=== PATIENT | male | born 1940 | race Caucasian/White ===

== ENCOUNTER 2017-12-11 11:02 | Emergency (ER) | payer SELFPAY ==
[~2017-12-11] VITALS: Ht 185.4 cm; Wt 104.0 kg
[~2017-12-11 11:02] MED LIST: ALFUZOSIN PO; ASPI81CH PO; Acidophilus La100 GM; CARV25 PO; CILO100 PO; CLOP75 PO; COREG; DOCU100 PO; FERR325 PO; FURO20 PO; FURO40 PO; GABA100 PO; HYDACE5 PO; INSN100I SC; INSULANPEN SC; LANTUS; LASIX; LOSA50 PO; METF500 PO; METO25ER PO; NEURONTIN; NOVOLOG; OMEP40CA12 PO; PENT400ER PO; PRILOSEC; SIMV80 PO; VERA240ERA PO; VICODIN HP 10-1 EACH PO
[2017-12-11 11:46] LABS: BASOPHILS ABSOLUTE AUTO 0.05 K/mm3 (0.00-0.23); BASOPHILS PERCENT AUTO 1 % (0-2); EOSINOPHILS ABSOLUTE AUTO 0.24 K/mm3 (0.00-0.68); EOSINOPHILS PERCENT AUTO 3 % (0-6); Hematocrit 35.6 % (37.0-53.0); Hemoglobin 11.9 g/dL (13.5-17.5); IMMATURE GRAN ABSOLUTE AUTO 0.02 K/mm3 (0.00-0.10); IMMATURE GRAN PERCENT AUTO 0 % (0-1); LYMPHOCYTES ABSOLUTE AUTO 1.59 K/mm3 (0.84-5.20); LYMPHOCYTES PERCENT AUTO 20 % (21-46); MONOCYTES ABSOLUTE AUTO 0.66 K/mm3 (0.16-1.47); MONOCYTES PERCENT AUTO 8 % (4-13); Mean Corpuscular HGB 31.2 pg (26.0-34.0); Mean Corpuscular HGB Conc 33.4 g/dL (31.5-36.5); Mean Corpuscular Volume 93 fL (80-100); Mean Platelet Volume 10.3 fL (9.1-12.4); NEUTROPHILS ABSOLUTE AUTO 5.48 K/mm3 (1.96-9.15); NEUTROPHILS PERCENT AUTO 68 % (41-73); Platelet Count 222 K/mm3 (150-400); RDW Coefficient Variation 11.8 % (11.7-14.2); RDW Standard Deviation 39.9 fL (35.1-46.3); Red Blood Cell Count 3.82 M/mm3 (4.30-5.90); White Blood Cell Count 8.04 K/mm3 (4.00-11.30)
[2017-12-11 12:01] LABS: Alanine Aminotransfer (ALT/SGP 29 U/L (12-78); Albumin, Blood 3.1 g/dL (3.4-5.0); Albumin/Globulin Ratio 0.9 (0.8-1.8); Alk Phos 108 U/L (50-136); Anion Gap 9 mmol/L (6-16); Aspartate Aminotrans (AST/SGOT 26 U/L (12-37); Bilirubin, Total 0.4 mg/dL (0.1-1.0); Blood Urea Nitrogen 29 mg/dL (8-24); Bun/Creatinine Ratio 26.6 (12.0-20.0); CO2, Blood 26 mmol/L (21-32); Calcium, Blood 8.2 mg/dL (8.5-10.1); Chloride, Blood 101 mmol/L (98-108); Creatinine, Blood 1.09 mg/dL (0.60-1.20); Globulin, Blood 3.6 g/dL (2.2-4.0); Glomerular Filtration Rate >60 (60-); Glucose, Blood 335 mg/dL (70-99); Potassium, Blood 4.3 mmol/L (3.5-5.5); Sodium, Blood 136 mmol/L (136-145); Total Protein, Blood 6.7 g/dL (6.4-8.2); Troponin I <0.015 ng/mL (0.000-0.040)
[2017-12-11] MEDS ORDERED: SIMV80 PO (13:14)
[2017-12-11] MEDS ORDERED: Glucagon Emergen1 MG (13:15)
[2017-12-11 13:27] LABS: Source, Urine Clean Catch
[2017-12-11 14:16] LABS: Bilirubin, Urine Neg (Neg); Blood, Urine Neg (Neg); Glucose Qualitative, Urine 3+ (Neg); Ketones, Urine Neg (Neg); Leukocyte Esterase, Urine Neg (Neg); Nitrite, Urine Neg (Neg); Protein, Urine Neg (Neg); Urobilinogen, Urine NORM (Normal)
[2017-12-11 14:27] LABS: Appearance, Urine Clear (Clear); Color, Urine Yellow (P-Yellow)
== END 2017-12-11 15:53 | disposition home or self-care (01) ==
LOC: ER 11:02
PROVIDERS: Emergency Medicine
DX: R07.9 Chest pain, unspecified (principal); E11.40 Type 2 diabetes mellitus with diabetic neuropathy, unspecified; J44.9 Chronic obstructive pulmonary disease, unspecified; I10 Essential (primary) hypertension; Z88.2 Allergy status to sulfonamides; Z91.040 Latex allergy status; Z88.8 Allergy status to other drugs, medicaments and biological substances; Z79.899 Other long term (current) drug therapy; Z79.82 Long term (current) use of aspirin; Z79.4 Long term (current) use of insulin
CPT/HCPCS: 36415; 71046; 80053; 81003; 83880; 84484; 85025; 93005; 93010; 99284

== ENCOUNTER 2020-02-23 13:11 | Inpatient (IN) | payer OTHER, MEDICARE ==
[~2020-02-23] VITALS: Ht 190.5 cm; Wt 96.0 kg
[~2020-02-23 13:11] MED LIST changes: +ALFU10 PO; -ALFUZOSIN PO; +ASCO500 PO; -ASPI81CH PO; +Aspirin EC81 MG PO; +BASAGLAR K100 UNIT/1 SC; +CIPR500 PO; +CLEOCIN PO; +CLIN150 PO; +Culturelle1 CAP PO; +DOXY100 PO; +Flonase 0.05% N16 GM; +Glucagon Emergen1 MG; -INSN100I SC; -INSULANPEN SC; +K-Dur20 MEQ PO; +LEVO750 PO; +NOVOLOG FL100 UNIT/1 SC; +ONDA4ODT SL; +STIOLTO RESPIMAT4 G1 INH; +THERA1 EACH PO
[2020-02-23 13:53] LABS: BASOPHILS ABSOLUTE AUTO 0.06 K/mm3 (0.00-0.23); BASOPHILS PERCENT AUTO 0 % (0-2); EOSINOPHILS PERCENT AUTO 1 % (0-6); Hematocrit 38.4 % (37.0-53.0); IMMATURE GRAN PERCENT AUTO 1 % (0-1); LYMPHOCYTES ABSOLUTE AUTO 0.87 K/mm3 (0.84-5.20); LYMPHOCYTES PERCENT AUTO 5 % (21-46); MONOCYTES ABSOLUTE AUTO 1.37 K/mm3 (0.16-1.47); MONOCYTES PERCENT AUTO 8 % (4-13); Mean Corpuscular HGB 31.3 pg (26.0-34.0); Mean Corpuscular HGB Conc 33.9 g/dL (31.5-36.5); Mean Corpuscular Volume 92 fL (80-100); Mean Platelet Volume 10.8 fL (9.1-12.4); NEUTROPHILS ABSOLUTE AUTO 15.07 K/mm3 (1.96-9.15); NEUTROPHILS PERCENT AUTO 86 % (41-73); Platelet Count 287 K/mm3 (150-400); RDW Coefficient Variation 12.4 % (11.7-14.2); RDW Standard Deviation 41.8 fL (35.1-46.3); Red Blood Cell Count 4.16 M/mm3 (4.30-5.90); White Blood Cell Count 17.57 K/mm3 (4.00-11.30)
[2020-02-23 14:10] LABS: Albumin, Blood 2.3 g/dL (3.4-5.0); Albumin/Globulin Ratio 0.5 (0.8-1.8); Bilirubin, Total 1.1 mg/dL (0.1-1.0); Bun/Creatinine Ratio 47.6 (12.0-20.0); Calcium, Blood 8.6 mg/dL (8.5-10.1); Creatinine, Blood 1.24 mg/dL (0.60-1.20); Globulin, Blood 4.6 g/dL (2.2-4.0); Potassium, Blood 4.5 mmol/L (3.5-5.5); Total Protein, Blood 6.9 g/dL (6.4-8.2); Troponin I 0.242 ng/mL (0.000-0.040)
[2020-02-23 14:36] LABS: Source, Urine Catheter
[2020-02-23 14:45] LABS: Bilirubin, Urine Neg (Neg); Blood, Urine Neg (Neg); Glucose Qualitative, Urine Neg (Neg); Ketones, Urine Neg (Neg); Leukocyte Esterase, Urine Neg (Neg); Nitrite, Urine Neg (Neg); Protein, Urine 2+ (Neg); Specific Gravity, Urine 1.015 (1.003-1.022); Urobilinogen, Urine 1+ (Normal)
[2020-02-23 14:51] LABS: Appearance, Urine Clear (Clear); Color, Urine Yellow (P-Yellow)
[2020-02-23 14:52] LABS: Red Blood Cells, Urine Not Seen /hpf (0-2); Squamous Epithelial Cells Rare /hpf (Few); White Blood Cells, Urine Not Seen /hpf (0-5)
[2020-02-23 14:53] LABS: Bacteria Not Seen /hpf; Hyaline Casts 0-2 /lpf (0-2)
[2020-02-23] MEDS ORDERED: ZYRTEC10 M2 PO (18:43)
[2020-02-23] MEDS ORDERED: ACIDOPHILUS1 EAC3 PO (18:45)
[2020-02-23] MEDS ORDERED: PROAIR DIGIHAL90 MCG INH (18:47)
[2020-02-23] MEDS ORDERED: HYDACE10B PO (18:48)
--- NOTE | 2020-02-23 18:57 | NUR ---
REPORT RECEIEVED FROM VICENTE MACKEY RN, AT 1757. PATIENT ARRIVED TO ROOM 342. WOUND TO L FOOT CLEANSED PICS TAKEN AND PLACED IN PATIENT CHART. DRESSED WOUND. FOUL ODOR. IV ABX RUNNING. PATIENT EATING DINNER MEAL. VERY SUN'AQ. MED REC COMPLETED. REMAINDER OF ADMIT WILL NEED TO BE COMPLETED BY ONCOMING RN.
[2020-02-24 05:10] LABS: BASOPHILS ABSOLUTE AUTO 0.07 K/mm3 (0.00-0.23); BASOPHILS PERCENT AUTO 1 % (0-2); EOSINOPHILS ABSOLUTE AUTO 0.06 K/mm3 (0.00-0.68); EOSINOPHILS PERCENT AUTO 0 % (0-6); Hematocrit 37.6 % (37.0-53.0); Hemoglobin 12.9 g/dL (13.5-17.5); IMMATURE GRAN ABSOLUTE AUTO 0.08 K/mm3 (0.00-0.10); IMMATURE GRAN PERCENT AUTO 1 % (0-1); LYMPHOCYTES ABSOLUTE AUTO 0.91 K/mm3 (0.84-5.20); LYMPHOCYTES PERCENT AUTO 6 % (21-46); MONOCYTES ABSOLUTE AUTO 1.32 K/mm3 (0.16-1.47); MONOCYTES PERCENT AUTO 9 % (4-13); Mean Corpuscular HGB 31.5 pg (26.0-34.0); Mean Corpuscular HGB Conc 34.3 g/dL (31.5-36.5); Mean Corpuscular Volume 92 fL (80-100); NEUTROPHILS ABSOLUTE AUTO 12.72 K/mm3 (1.96-9.15); NEUTROPHILS PERCENT AUTO 84 % (41-73); NRBC ABSOLUTE 0.02 K/mm3 (0.00-0.02); NRBC Auto 0.1 /100 WBC (0.0-0.2); Platelet Count 304 K/mm3 (150-400); RDW Coefficient Variation 12.6 % (11.7-14.2); RDW Standard Deviation 42.3 fL (35.1-46.3); Red Blood Cell Count 4.09 M/mm3 (4.30-5.90); White Blood Cell Count 15.16 K/mm3 (4.00-11.30)
[2020-02-24 05:46] LABS: Bun/Creatinine Ratio 39.4 (12.0-20.0); Calcium, Blood 8.4 mg/dL (8.5-10.1); Creatinine, Blood 1.32 mg/dL (0.60-1.20); Potassium, Blood 3.9 mmol/L (3.5-5.5)
[2020-02-24 05:58] LABS: C-Reactive Protein, High Sens. 96.2 mg/L (0.000-3.000)
--- NOTE | 2020-02-24 06:18 | NUR ---
SUMMARY PT HAS BEEN AOX 4. PT DENIES PAIN OR DISCOMFORT. PT CBG'S HAVE BEEN >300 THIS SHIFT. PT CALLED EARLY THIS AM AND WANTED PT CBG TO BE CHECKED DUE TO PT HAVING FREQUENT ISSUES WITH HYPOGLYCEMIA AT NIGHT. PT CBG WAS >300. PT HAS BEEN SLEEPING WELL W/ NO COMPLAINTS. CALL LIOGHT IN REACH.
--- NOTE | 2020-02-24 17:33 | NUR ---
PATIENTS BLOOD SUGAR THIS EVENING WAS 431. I CALLED DR SHAH AT APPROX 1715 AND INFORMED HIM OF PATIENTS SUGARS FOR TODAY AND RELAYED MESSAGED OF PATIENTS HOME SCHEDULE OF INSULIN, PER PATIENT, WHICH IS 30 UNITS LANTUS QHS AND 20 UNITS HUMALOG QAC FIRST DOSE OF EACH TO BE GIVEN NOW. PATIENT HAS BEEN PLEASANT AND COOPERATIVE WITH STAFF. COMPLAINED OF PAIN ONLY ONCE TO HIS LEFT PLANTAR FOOT WITH EFFECTIVE RELIEF FROM PRN TYLENOL. PATIENT CONTINUES ON IV ABX WITHOUT S/SX OF ADVERSE REACTIONS NOTED OR REPORTED. VITALS HAVE BEEN STABLE. DRESSING TO L FOOT CDI. PATIENT CONTINUES TO REST IN BED. WILL CONTINUE TO MONITOR AND PROVIDE CARE NEEDED.
--- NOTE | 2020-02-25 04:04 | NUR ---
SUMMARY PT HAD NO ISSUES NOTED. PT HAS BEEN SLEEPING WELL T/O SHIFT. PT WENT TO CT AT START OF SHIFT. PT CURRENTLY SLEEPING AND BREATHING EASY. CALL LIGHT IN REACH.
[2020-02-25 06:04] LABS: BASOPHILS ABSOLUTE AUTO 0.09 K/mm3 (0.00-0.23); BASOPHILS PERCENT AUTO 1 % (0-2); EOSINOPHILS ABSOLUTE AUTO 0.19 K/mm3 (0.00-0.68); EOSINOPHILS PERCENT AUTO 1 % (0-6); Hematocrit 39.2 % (37.0-53.0); Hemoglobin 13.3 g/dL (13.5-17.5); IMMATURE GRAN PERCENT AUTO 1 % (0-1); LYMPHOCYTES ABSOLUTE AUTO 1.13 K/mm3 (0.84-5.20); LYMPHOCYTES PERCENT AUTO 6 % (21-46); MONOCYTES ABSOLUTE AUTO 1.53 K/mm3 (0.16-1.47); MONOCYTES PERCENT AUTO 9 % (4-13); Mean Corpuscular HGB 31.5 pg (26.0-34.0); Mean Corpuscular HGB Conc 33.9 g/dL (31.5-36.5); Mean Corpuscular Volume 93 fL (80-100); Mean Platelet Volume 10.8 fL (9.1-12.4); NEUTROPHILS ABSOLUTE AUTO 15.03 K/mm3 (1.96-9.15); NEUTROPHILS PERCENT AUTO 83 % (41-73); NRBC ABSOLUTE 0.02 K/mm3 (0.00-0.02); NRBC Auto 0.1 /100 WBC (0.0-0.2); Platelet Count 302 K/mm3 (150-400); RDW Coefficient Variation 12.8 % (11.7-14.2); RDW Standard Deviation 43.6 fL (35.1-46.3); Red Blood Cell Count 4.22 M/mm3 (4.30-5.90); White Blood Cell Count 18.07 K/mm3 (4.00-11.30)
[2020-02-25 06:18] LABS: Anion Gap 7 mmol/L (6-16); Blood Urea Nitrogen 44 mg/dL (8-24); Bun/Creatinine Ratio 42.7 (12.0-20.0); CO2, Blood 28 mmol/L (21-32); Calcium, Blood 8.4 mg/dL (8.5-10.1); Chloride, Blood 99 mmol/L (98-108); Creatinine, Blood 1.03 mg/dL (0.60-1.20); Glomerular Filtration Rate >60 (60-); Glucose, Blood 151 mg/dL (70-99); Potassium, Blood 3.6 mmol/L (3.5-5.5); Sodium, Blood 134 mmol/L (136-145)
--- NOTE | 2020-02-25 17:15 | NUR ---
SHIFT SUMMARY- PT IS A/O, PLESANT AND COOPERATIVE. HIS WAS WAS AT BEDSIDE MOST OF THIS SHIFT. WAS SEEN BY ORTHO TODAY DISCUSSED BKA VS AKA. PT HAD A DOPLER PREFORMED TO DETERMINE BLOOD FLOW TO THE EXTREMITY TO DETERMINE WHICH AMPUTATION WOULD BE APPROPRIATE. PT SLEPT INTERMITENTLY THROUGHOUT THIS SHIFT. BANDAGE CHANGED. HE IS EATING AND DRINKING WELL. HE WILL BE NPO AFTER MIDNIGHT. AND POSSIBLE AMPUTATION TOMORROW.
--- NOTE | 2020-02-26 04:11 | NUR ---
SHIFT SUMMARY PT HAS HAD NO ACUTE CHANGES THIS SHIFT, NO C/O ANY KIND, A&O, PLEASANT & COOPERATIVE W/CARE, NPO SINCE MIDNIGHT, SLEP T/O THE NIGHT W/ @ BEDSIDE, SLEEPING AT THIS TIME, CALL LIGHT IN REACH, WILL CONT TO MONITOR UNTIL REPORT GIVEN TO DAY RN.
--- NOTE | 2020-02-26 16:23 | NUR ---
SHIFT SUMMARY- PT A/O PLESANT AND COOPERATIVE. HE IS RECIEVING IV ABX. HIS WAS AT BEDSIDE MOST OF THIS SHIFT. HE HAS BEEN NPO THROUGHOUT THIS SHIFT FOR PENDING PROCEDURE. HE RECIEVED A SHOWER. 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 BANDAGE IS CDI.
--- NOTE | 2020-02-26 16:24 | NUR ---
"DAY SURGERY RN | HANDOFF TO RODERICK SYKES REPORT GIVEN. WAYLON ZIEGLER RN HERE TO TALK WITH PATIENT."
--- NOTE | 2020-02-26 17:21 | NUR ---
02/26/20 1721 Erna Flores PT ON SCHEDULED ANTIBIOTICS
--- NOTE | 2020-02-26 19:15 | NUR ---
BEDSIDE REPORT WITH ANN RN. PT ARRIVES TO ICU RM 3 FROM PACU. PT UNDERWENT LEFT BKA. PT PALE, DIAPHORETIC AND CONFUSED. PT MOVING AROUND QUITE A BIT IN BED, PULLING AT MONITOR ITEMS AND TUBING FOR IV. PT HAS 18G TO RIGHT AC WITH LR AND ABX INFUSING FROM OR. PT HAS BULKY DRESSING AND STUMP SOCK TO LEFT LEG, C/D/I. PT ANSWERS TO NAME BUT IS UNABLE TO FOLLOW DIRECTIONS OR OFFER MUCH DETAIL, PT NOT COOPERATIVE WITH CARE. BP STABLE. SATS >95% ON 4L (TITRATED TO 3L). HR 60S AND PACED. PT LUNG SOUNDS CLEAR. PULSES PRESENT, STRONG TO RADIAL SITES, THREADY TO RIGHT FOOT. SEE FULL ASSESSMENT.
[2020-02-27 03:44] LABS: BASOPHILS ABSOLUTE AUTO 0.06 K/mm3 (0.00-0.23); BASOPHILS PERCENT AUTO 0 % (0-2); EOSINOPHILS ABSOLUTE AUTO 0.01 K/mm3 (0.00-0.68); EOSINOPHILS PERCENT AUTO 0 % (0-6); Hematocrit 39.1 % (37.0-53.0); Hemoglobin 12.4 g/dL (13.5-17.5); IMMATURE GRAN ABSOLUTE AUTO 0.24 K/mm3 (0.00-0.10); IMMATURE GRAN PERCENT AUTO 1 % (0-1); LYMPHOCYTES ABSOLUTE AUTO 0.73 K/mm3 (0.84-5.20); LYMPHOCYTES PERCENT AUTO 4 % (21-46); MONOCYTES ABSOLUTE AUTO 0.35 K/mm3 (0.16-1.47); MONOCYTES PERCENT AUTO 2 % (4-13); Mean Corpuscular HGB 31.2 pg (26.0-34.0); Mean Corpuscular HGB Conc 31.7 g/dL (31.5-36.5); Mean Platelet Volume 10.4 fL (9.1-12.4); NEUTROPHILS ABSOLUTE AUTO 17.21 K/mm3 (1.96-9.15); NEUTROPHILS PERCENT AUTO 93 % (41-73); Platelet Count 309 K/mm3 (150-400); RDW Coefficient Variation 13.3 % (11.7-14.2); RDW Standard Deviation 47.8 fL (35.1-46.3); Red Blood Cell Count 3.98 M/mm3 (4.30-5.90)
[2020-02-27 03:53] LABS: Mean Corpuscular Volume 98 fL (80-100)
[2020-02-27 04:02] LABS: Anion Gap 6 mmol/L (6-16); Blood Urea Nitrogen 37 mg/dL (8-24); Bun/Creatinine Ratio 30.3 (12.0-20.0); CO2, Blood 28 mmol/L (21-32); Chloride, Blood 104 mmol/L (98-108); Creatinine, Blood 1.22 mg/dL (0.60-1.20); Glomerular Filtration Rate >60 (60-); Glucose, Blood 217 mg/dL (70-99); Magnesium, Blood 2.1 mg/dL (1.6-2.4); Potassium, Blood 5.1 mmol/L (3.5-5.5); Sodium, Blood 138 mmol/L (136-145)
--- NOTE | 2020-02-27 06:32 | NUR ---
SHIFT SUMMARY PT HAD GREAT EVENING. PT ALERT AND ORIENTED. PT SATS >90% ON 2-3L O2 PER NC. PT HAS 18G TO RIGHT AC WITH NS INFUSING AT 10ML/HR. PT HAS 20G TO RIGHT SHOULDER/CHEST AREA WITH NS c 20MeQ KCL INFUSING AT 80ML/HR. PT BP STABLE, FILM REPRODUCER SHOWS A PACED RYTHYM, PT DENIES CP. DRESSING TO LEFT LEG C/D/I. LIMB INTERMITTENTLY ELEVATED. BED ALARM IN USE, CALL LIGHT IN REACH. LUNG SOUNDS CLEAR. ABD SOFT AND NON-TENDER. BS PRESENT. WILL REPORT TO ONCOMING SHIFT.
--- NOTE | 2020-02-27 08:37 | NUR ---
Received report from Jose SYKES. Patient laying on left and flat in bed. He called for pain medication and gave one Spivey 5/325 for 01/27 LBKA. He is laert and cooperative and is able to communicate needs well. LBKA site C/D/I. He is on 2 L O2 via NC and sats 97%. He has IV right chest right of nipple line and dressing intact and site WNL's and infusing NS TKO. He also has 18ga RAC IV dressing intact and site WNL's and is infusing NS with 20K of potassium at 80 ml/hr. at bedside. He tolerated breakfast and am meds well.
--- NOTE | 2020-02-27 10:26 | NUR ---
Patient states that left leg hurting again and will medicate per MAR. Used urinal; appropriately and had 600 dark cristiana urine. Transfered to surgical status and awaiting room. VSS. He is on RA and sats >95%.
--- NOTE | 2020-02-27 11:43 | NUR ---
Medicated per MAR for pain and CBG 286 no coverage excet 20 units Humalog AC/HS. He rtemains on RA and sats >95%. He continues with NS with 20 meq K at 80 ml/hr. remains at bedside, Remains 100% paced, VSS see EMR. Patient has no current needs. Just set up for lunch and assisting feeding./
--- NOTE | 2020-02-27 13:30 | NUR ---
Patient was up with PT to side of bed and did well. He tolerated lunch well. VSS, See EMR. Remains on NS with 20meq K at 80 ml. No significant changes, he will be transfering to med floor soon. Gave diet Pepsi as his choice with ice.
--- NOTE | 2020-02-27 15:42 | NUR ---
Gave report to Gaviota SYKES. Patient taken to [place] [id number] via bed. Med icated for pain per MAR prior to transport. Took 5 bags of belongs and 1 dressing change for tomorrow and came with us. He was a four person transfer to bed and got situated prior to leaving.
--- NOTE | 2020-02-27 18:03 | NUR ---
SHIFT SUMMARY: ASSUMED CARE OF PATIENT UPON HIS ARRIVAL FROM ICU AT 1530. A&O X 3, PLEASANT. SURGICAL DRESSING ON LLE IS CD&I. STATES PAIN CURRENTLY WELL CONTROLLED. PATIENT WORKED WITH PT AFTER HIS ARRIVAL TO THIS UNIT. TOLERATING PO INTAKE, DENIES N/V. USING URINAL INDEPENDENTLY. PLAN IS D/C TO SNF FOR REHAB.
--- NOTE | 2020-02-28 04:29 | NUR ---
OUTBOARD MOTORBOAT OPERATOR SUMMARY ALERT AND ORIENTED. SOMEWHAT AGITATED AT TIMES. REPORTS PAIN IN LLE S/P BTK AMPUTATION. MEDICATED PER EMAR. APPEARED TO SLEEP T/O THE NIGHT. NO ACUTE DISTRESS NOTED. DENIES SOB. BED IN LOWEST POSITION WITH CALL LIGHT IN REACH. WILL CONTINUE TO MONITOR AND REPORT TO ONCOMING RN.
[2020-02-28] MEDS ORDERED: DOCUZEN 8.6-501 EACH PO (12:09)
[2020-02-28] MEDS ORDERED: BASAGLAR K100 UNIT/1 SC (12:10)
[2020-02-28] MEDS ORDERED: HUMALOG KW100 UNIT/1 SC (12:12)
--- NOTE | 2020-02-28 18:39 | NUR ---
SHIFT SUMMARY PER REPORT PT IS POST OP DAY [address] BEVERLY IN EARLY BEFORE START OF SHIFT TO CHECK ON PT AND AGAIN AT 0830 TO CHANGE DRSG TO LBKA. WOUND CLEANED, NEW ABD'S PLACED WELL STUMP SOCK. PT'S IN AT THE TIME AND ASSISTED DR BEVERLY, PER HIS REQUEST. PT MEDICATED X2 WITH PO NORCO. PAIN LEVEL TOLERABLE ALL DAY AND PT REPORTED MEDICATION EFFECTIVE. PT UP TO BSC WITH PIVOT TX USING FWW AND 2P ASSIST. ONLY SM BM REPORTED. PT HAD REFUSED BOWEL CARE D/T STOOL SOFTNERS GIVING HIIM DIARRHEA. DR SHAW NOTIFIED OF PT'S REFUSAL. D/C ORDERS PLACED FOR REHAB [facility]. ARRANGEMENTS MADE BY VIDEO GAME ANIMATOR. REPORT CALLED PRIOR TO PT LEAVING AND AGAIN TO [facility] SYKES, AFTER PT LEFT, [facility]. IN UNTIL PT LEFT. D/C PACKET AND HARD SCRIPT SENT WITH PT.
== END 2020-02-28 18:04 | DRG 616 ==
LOC: ER 13:11 → ICUE 17:48 → MEDS 17:48 → ICUE 02-26 19:36 → MEDS 02-27 15:43
PROVIDERS: Orthopaedic Surgery; Physician Assistant; ADMIT Internal Medicine
PROC: 0Y6J0Z1 Detachment at Left Lower Leg, High, Open Approach (ICD-10-PCS; principal; 2020-02-26 15:15)
DX: E11.621 Type 2 diabetes mellitus with foot ulcer (principal); A48.0 Gas gangrene; I50.42 Chronic combined systolic (congestive) and diastolic (congestive) heart failure; I13.0 Hypertensive heart and chronic kidney disease with heart failure and stage 1 through stage 4 chronic kidney disease, or unspecified chronic kidney disease; Q60.0 Renal agenesis, unilateral; L97.529 Non-pressure chronic ulcer of other part of left foot with unspecified severity; D50.9 Iron deficiency anemia, unspecified; E11.42 Type 2 diabetes mellitus with diabetic polyneuropathy; E11.65 Type 2 diabetes mellitus with hyperglycemia; G92 Toxic encephalopathy; E11.22 Type 2 diabetes mellitus with diabetic chronic kidney disease; N18.3 Chronic kidney disease, stage 3 (moderate); N17.9 Acute kidney failure, unspecified; J44.9 Chronic obstructive pulmonary disease, unspecified; I25.10 Atherosclerotic heart disease of native coronary artery without angina pectoris; B95.1 Streptococcus, group B, as the cause of diseases classified elsewhere; E86.0 Dehydration; Z95.0 Presence of cardiac pacemaker; Z95.1 Presence of aortocoronary bypass graft; N40.0 Benign prostatic hyperplasia without lower urinary tract symptoms; E78.5 Hyperlipidemia, unspecified; I25.5 Ischemic cardiomyopathy
CPT/HCPCS: 36415; 71046; 73630; 73701; 80048; 80053; 81001; 82947; 83605; 83735; 83880; 84145; 84484; 85025; 85651; 86141; 87040; 87070; 87075; 87147; 87205; 88307; 93005; 93010; 93926; 94640; 94760; 96365; 96367; 96375; 96376; 97110; 97162; 97166; 97535; 99285-25; A9270-GY; J0295; J1100; J1170; J1885; J1940; J2405; J2543; J2704; J3010; J3370; J3480; J7050; J7120; Q9967; U0002

== ENCOUNTER 2021-02-04 14:36 | Emergency (ER) | payer OTHER ==
[~2021-02-04] VITALS: Ht 185.4 cm; Wt 81.7 kg
[~2021-02-04 14:36] MED LIST changes: +ACIDOPHILUS1 EAC3 PO; +DOCUZEN 8.6-501 EACH PO; +ELIQUIS2.5 MG PO; +FERSU300 PO; +HUMALOG KW100 UNIT/1 SC; +HYDACE10B PO; +POTCIT10 PO; +PROAIR DIGIHAL90 MCG INH; +ZYRTEC10 M2 PO
[2021-02-04 15:34] LABS: BASOPHILS ABSOLUTE AUTO 0.08 K/mm3 (0.00-0.23); BASOPHILS PERCENT AUTO 1 % (0-2); EOSINOPHILS ABSOLUTE AUTO 0.11 K/mm3 (0.00-0.68); EOSINOPHILS PERCENT AUTO 1 % (0-6); Hematocrit 39.6 % (37.0-53.0); Hemoglobin 13.4 g/dL (13.5-17.5); IMMATURE GRAN ABSOLUTE AUTO 0.03 K/mm3 (0.00-0.10); IMMATURE GRAN PERCENT AUTO 0 % (0-1); LYMPHOCYTES ABSOLUTE AUTO 1.03 K/mm3 (0.84-5.20); LYMPHOCYTES PERCENT AUTO 11 % (21-46); MONOCYTES PERCENT AUTO 11 % (4-13); Mean Corpuscular HGB 31.5 pg (26.0-34.0); Mean Corpuscular HGB Conc 33.8 g/dL (31.5-36.5); Mean Corpuscular Volume 93 fL (80-100); Mean Platelet Volume 10.3 fL (9.1-12.4); NEUTROPHILS ABSOLUTE AUTO 6.96 K/mm3 (1.96-9.15); NEUTROPHILS PERCENT AUTO 76 % (41-73); Platelet Count 302 K/mm3 (150-400); RDW Coefficient Variation 13.5 % (11.7-14.2); RDW Standard Deviation 46.2 fL (35.1-46.3); Red Blood Cell Count 4.26 M/mm3 (4.30-5.90); White Blood Cell Count 9.21 K/mm3 (4.00-11.30)
[2021-02-04 15:57] LABS: Troponin I 0.117 ng/mL (0.000-0.040)
[2021-02-04 16:11] LABS: Albumin, Blood 2.8 g/dL (3.4-5.0); Albumin/Globulin Ratio 0.5 (0.8-1.8); Bilirubin, Total 0.8 mg/dL (0.1-1.0); Bun/Creatinine Ratio 43.9 (12.0-20.0); Calcium, Blood 9.6 mg/dL (8.5-10.1); Creatinine, Blood 1.64 mg/dL (0.60-1.20); Globulin, Blood 5.6 g/dL (2.2-4.0); Potassium, Blood 2.4 mmol/L (3.5-5.5); Total Protein, Blood 8.4 g/dL (6.4-8.2)
[2021-02-04] MEDS ORDERED: K-Dur20 MEQ PO (20:31)
== END 2021-02-04 21:19 | disposition home or self-care (01) ==
LOC: ER 14:36
PROVIDERS: Physician Assistant
DX: Z45.02 Encounter for adjustment and management of automatic implantable cardiac defibrillator (principal); E87.6 Hypokalemia; E11.42 Type 2 diabetes mellitus with diabetic polyneuropathy; I11.0 Hypertensive heart disease with heart failure; I50.42 Chronic combined systolic (congestive) and diastolic (congestive) heart failure; J44.9 Chronic obstructive pulmonary disease, unspecified; Z87.891 Personal history of nicotine dependence; Z79.4 Long term (current) use of insulin; Z95.1 Presence of aortocoronary bypass graft; Z95.5 Presence of coronary angioplasty implant and graft; Z88.8 Allergy status to other drugs, medicaments and biological substances; Z88.2 Allergy status to sulfonamides; Z91.040 Latex allergy status
CPT/HCPCS: 36415; 80053; 83690; 83735; 84132; 84484; 85025; 93005; 93010; 96365; 96366; 99284-25; A9270; J3480; J7050

== ENCOUNTER 2021-06-10 10:25 | Day surgery (SDC) | payer OTHER ==
[~2021-06-10] VITALS: Ht 185.4 cm; Wt 80.0 kg
[~2021-06-10 10:25] MED LIST changes: +ARTIFICIAL TEA1 EAC1; +Acerola C500 MG PO; +MULVITA PO
--- NOTE | 2021-06-10 13:25 | NUR ---
PT SELF MEDICATED WITH HOME INSULIN FOR BLOOD SUGARS AND ALSO TOOK HIM HOME MORNING MEDICATIONS. VSS.
--- NOTE | 2021-06-10 14:29 | NUR ---
1G ANCEF INFUSING ORDERED PRIOR TO DC. VSS. NO BLEEDING, OOZING OR HEMATOMA NOTED. WILL CONTINUE TO MONITOR.
--- NOTE | 2021-06-10 15:01 | NUR ---
DISCHARGE PT DRESSED SELF WITH NO COMPLICATIONS. PTS SITE WITH NO BLEEDING, OOZING OR HEMATOMA NOTED. NO ADDITIONAL SWELLING NOTED SINCE PT RETURNED TO RECOVERY ROOM. PT AOX4, DENIES ANY PAIN. IV DCD WITH CATH INTACT. PT TRANSFERED SELF INTO PERSONAL ELECTRIC WHEELCHAIR AND OUT TO EXIT WITH WHERE WILL DRIVE PT HOME.
== END 2021-06-10 15:00 | disposition home or self-care (01) ==
LOC: MHTC 10:25
PROC: 0JPT0PZ Removal of Cardiac Rhythm Related Device from Trunk Subcutaneous Tissue and Fascia, Open Approach (ICD-10-PCS; principal; 2021-06-10)
PROC: 0JH608Z Insertion of Defibrillator Generator into Chest Subcutaneous Tissue and Fascia, Open Approach (ICD-10-PCS; principal; 2021-06-10)
DX: Z45.02 Encounter for adjustment and management of automatic implantable cardiac defibrillator (principal); I11.0 Hypertensive heart disease with heart failure; I50.22 Chronic systolic (congestive) heart failure; I25.10 Atherosclerotic heart disease of native coronary artery without angina pectoris; I25.5 Ischemic cardiomyopathy; E11.9 Type 2 diabetes mellitus without complications; G47.33 Obstructive sleep apnea (adult) (pediatric); Z95.810 Presence of automatic (implantable) cardiac defibrillator; Z95.1 Presence of aortocoronary bypass graft; Z95.5 Presence of coronary angioplasty implant and graft; Z79.01 Long term (current) use of anticoagulants; Z79.899 Other long term (current) drug therapy; Z79.4 Long term (current) use of insulin; Z88.2 Allergy status to sulfonamides; Z91.040 Latex allergy status; Z88.8 Allergy status to other drugs, medicaments and biological substances
CPT/HCPCS: 33264; 82947; 93005; 93010; 99152; 99153; C1882; J0690; J1580; J1644; J2250; J3010; J7040